=== PATIENT | female | born 1935 | race Caucasian/White ===

== ENCOUNTER → 2016-07-21 | Outpatient (CLI) | payer MEDICARE, OTHER | END | disposition home or self-care (01) | LOC: LAB.O 15:33 | PROVIDERS: ATTEND Family Medicine | DX: J44.1 Chronic obstructive pulmonary disease with (acute) exacerbation (principal) ==

== ENCOUNTER → 2019-06-06 | Outpatient (CLI) | payer MEDICARE, OTHER ==
--- NOTE | 2019-06-07 08:12 | US ---
EXAM DESCRIPTION: Soft Tissue,Head/Neck: ULTRASOUND. CLINICAL HISTORY: 84 years Female MASS. Palpable lump on the right posterior neck. Enlarging. COMPARISON: None Available. TECHNIQUE: Transcutaneous scanning: Hanson-scale and Doppler modes. FINDINGS: Scanning of the right posterior neck. Circumscribed hypoechoic mass in the subcutaneous adipose tissue with wider than tall orientation and posterior acoustic enhancement. Minimally vascular. Dimensions are 9.3 x 6.4 x 3.1 mm. With fatty hilum is not seen. No distinct cyst or calcification. No skin tract. IMPRESSION: Probable reactive lymph node almost 1 cm, with no tract to skin. Electronically signed by: Emiliano An MD 06/07/2019 8:10 AM [facility]
== END ==
LOC: US 10:00
PROVIDERS: ATTEND Family Medicine
DX: R22.1 Localized swelling, mass and lump, neck (principal); F17.210 Nicotine dependence, cigarettes, uncomplicated; M81.8 Other osteoporosis without current pathological fracture

== ENCOUNTER → 2020-07-11 | Outpatient (CLI) | payer MEDICARE, OTHER | LOC: GMAM 15:22 | PROVIDERS: ATTEND Family Medicine | DX: E53.8 Deficiency of other specified B group vitamins (principal); E55.9 Vitamin D deficiency, unspecified; I65.23 Occlusion and stenosis of bilateral carotid arteries; E11.51 Type 2 diabetes mellitus with diabetic peripheral angiopathy without gangrene ==